=== PATIENT | male | born 1950 | race Caucasian/White ===

== ENCOUNTER 2017-12-09 19:45 | Emergency (ER) | payer OTHER ==
[~2017-12-09] VITALS: Ht 182.9 cm; Wt 97.5 kg
[~2017-12-09 19:45] MED LIST: NOHOMEMEDICATIONS; ULTRAM 50MG TAB50 MG PO
[2017-12-09] MEDS ORDERED: PROSCAR 5MG TABL5 MG (20:25)
[2017-12-09] MEDS ORDERED: NORCO 5-325 TA1 EACH PO (21:36)
[2017-12-09 21:56] VITALS: BP 133/81
== END 2017-12-09 21:58 | disposition home or self-care (01) ==
LOC: M.ERS 19:45
DX: S09.21XA Traumatic rupture of right ear drum, initial encounter (principal); Z88.8 Allergy status to other drugs, medicaments and biological substances; W18.39XA Other fall on same level, initial encounter; Y93.89 Activity, other specified; Y92.89 Other specified places as the place of occurrence of the external cause; Y99.8 Other external cause status